=== PATIENT | female | born 1935 | race Caucasian/White ===

== ENCOUNTER 2019-03-23 20:33 | Emergency (ER) | payer MEDICARE, OTHER ==
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
[2019-03-23] MEDS ORDERED: Diphtheria,Pertussis(Acell),Tetanus Vaccine 0.5 ML Syringe IM ONE (21:15)
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
== END 2019-03-23 21:55 | disposition home or self-care (01) ==
LOC: MW.ED 20:33
DX: S01.01XA Laceration without foreign body of scalp, initial encounter (principal); Z23 Encounter for immunization; W22.8XXA Striking against or struck by other objects, initial encounter
CPT/HCPCS: 70450; 70450-26; 72125; 72125-26; 90471; 90715; 99283-25

== ENCOUNTER 2019-03-28 09:42 | Emergency (ER) | payer MEDICARE, OTHER | END 2019-03-28 09:56 | disposition home or self-care (01) | LOC: MW.ED 09:42 | DX: Z53.21 Procedure and treatment not carried out due to patient leaving prior to being seen by health care provider (principal) | CPT/HCPCS: 99281 ==